=== PATIENT | female | born 1955 ===

== ENCOUNTER 2022-11-05 11:56 | Outpatient (REF) | payer OTHER, SELFPAY ==
[2022-11-05 14:41] LABS: Anion Gap 12 (12-20); Blood Urea Nitrogen 16 mg/dL (9-16); Calcium 9.9 mg/dL (8.4-10.2); Carbon Dioxide 29 mmol/L (22-29); Chloride 104 mmol/L (96-108); Estimated Glomerular Filt Rate > 60; Glucose Random 93 mg/dL (60-115); Sodium 140 mmol/L (135-145)
[2022-11-05 15:20] LABS: Folate 14.2 ng/mL (> or = 4.0); T4 Thyroxine 9.5 ug/dL (4.5-12.0); Thyroid Stimulating Hormone 0.31 uIU/mL (0.32-4.0)
[2022-11-06 06:46] LABS: Vitamin B12 295 pg/mL (200-900)
[2022-11-09 20:24] LABS: Methylmalonic Acid 147 nmol/L (87-318)
[2022-11-10 15:48] LABS: Vitamin D 25-OH, D2 <4 ng/mL; Vitamin D 25-OH, D3 39 ng/mL; Vitamin D 25-OH, Total 39 ng/mL (30-100)
== END 2022-11-05 11:57 | disposition home or self-care (01) ==
LOC: HO.LAB 11:56
PROVIDERS: PCP Psychiatry & Neurology Neurology; Visit Provider Psychiatry & Neurology Neurology
DX: G31.84 Mild cognitive impairment of uncertain or unknown etiology (principal); E56.9 Vitamin deficiency, unspecified
CPT/HCPCS: 36415; 80048; 82306; 82607; 82746; 83921; 84436; 84443

== ENCOUNTER 2025-05-10 12:31 | Outpatient (REF) | payer OTHER, SELFPAY | END 2025-05-10 12:32 | disposition home or self-care (01) | LOC: CF 12:31 | DX: Z13.89 Encounter for screening for other disorder (principal) ==